=== PATIENT | male | born 1945 | race Caucasian/White ===

== ENCOUNTER 2021-11-21 08:10 | Inpatient (IN) ==
[2021-11-21 08:45] LABS: ABS Lymphocytes 0.4 10^3/ul (1.0-4.8); ABS Monocytes 0.6 10^3/ul (0-0.8); ABS Neutrophils 8.2 10^3/ul (1.5-7.7); Hematocrit 46 % (42-52); Lymphocyte % 4.6 %; Mean Corpuscular HGB Conc 35 g/dL (31-36); Mean Corpuscular Hemoglobin 31 pg (27-31); Mean Corpuscular Volume 90 fL (80-94); Mean Platelet Volume 8.7 fL (7.4-10.4); Platelet Count 207 10^3/uL (150-450); Red Blood Count 5.13 10^6 /uL (4.18-5.48); Red Cell Distribution Width 14 % (10-15); White Blood Count 9.3 10^3/uL (3.5-10.8)
[2021-11-21 08:55] LABS: Activated Partial Thrombo Time 26.6 seconds (26.0-38.0); INR 1.28 (0.86-1.15)
[2021-11-21 09:03] LABS: Albumin 3.8 g/dL (3.2-5.2); Albumin/Globulin Ratio 1.2 (1-3); C Reactive Protein 60.74 mg/L (<8.01); Calcium 8.6 mg/dL (8.6-10.3); Globulin 3.2 g/dL (2-4); Potassium 3.9 mmol/L (3.5-5.0); eGFR CKD-EPI 87.4 (>60)
[2021-11-21 09:04] LABS: Troponin I 0.01 ng/mL (<0.03)
[2021-11-21 10:36] LABS: Urine Appearance Clear; Urine Bilirubin Negative (Negative); Urine Blood 1+ (Negative); Urine Color Amber; Urine Glucose Negative (Negative); Urine Ketones Negative (Negative); Urine Nitrite Negative (Negative); Urine Protein 2+(100 mg/dL) (Negative); Urine Specific Gravity 1.027 (1.002-1.030); Urine Urobilinogen Positive (Negative)
[2021-11-21 10:58] LABS: Urine Bacteria Absent (Absent); Urine Red Blood Cell Trace(0-2/hpf) (Absent); Urine White Blood Cell Trace(0-5/hpf) (Absent)
[2021-11-21] MEDS ORDERED: Azithromycin 500 mg/250 ml NS 500 MG/250 ML BAG IVPB ONE (11:13)
[2021-11-21] MEDS ORDERED: cefTRIAXone 1 gm/50 mL NS BAG 1 GM/50 ML BAG IV ONE (11:13)
[2021-11-21] MEDS ORDERED: Dexamethasone IV 4 MG/ML VIAL 1 ml VIAL IV SLOW PU ONE (11:13)
[2021-11-21] MEDS ORDERED: Albuterol HFA INHALER 8 gm MDI INH PRN (12:59)
[2021-11-21] MEDS: methylPREDNISolone SOD 40 mg/ml 1 ml VIAL IV SCH (13:59)
[2021-11-21] MEDS ORDERED: Remdesivir 100 mg Vial 200 MG in NS 0.9% 250 ml 210 ML IV ONE (14:00)
[2021-11-21] MEDS: Enoxaparin 40 MG/0.4 ML SYR SUBCUT SCH (14:03)
[2021-11-21] MEDS ORDERED: Vancomycin 1,750 MG in NS 0.9% 500 ml BAG 500 ML IVPB ONE (14:30)
[2021-11-21] MEDS ORDERED: Cefepime 2 GM in Dextrose 2 GM/50 ML BAG IV SCH (15:00)
[2021-11-21] MEDS ORDERED: Vancomycin 1,500 MG in NS 0.9% 250 ml 250 ML IVPB SCH (15:00)
[2021-11-21] MEDS ORDERED: guaiFENesin 100 mg/5 ml LIQ unit dose cup PO PRN (15:38)
[2021-11-21 16:57] LABS: INR 1.25 (0.86-1.15)
[2021-11-21] MEDS ORDERED: Vancomycin per Pharmacy 1 EA NOTE FOLLOW UP SCH (17:00)
[2021-11-22] MEDS ORDERED: Vancomycin 1,250 MG in NS 0.9% 250 ml 250 ML IVPB SCH (03:00)
[2021-11-22] MEDS: methylPREDNISolone SOD 40 mg/ml 1 ml VIAL IV SCH ×2 (03:07→10:16)
[2021-11-22] MEDS ORDERED: Cefepime 2 GM in Dextrose 2 GM/50 ML BAG IV SCH (06:00)
[2021-11-22] MEDS ORDERED: Cefepime 2 GM in NS 0.9% 50 ML 50 ML IVPB SCH (06:00)
[2021-11-22 06:59] LABS: ABS Lymphocytes 0.6 10^3/ul (1.0-4.8); ABS Monocytes 0.6 10^3/ul (0-0.8); ABS Neutrophils 10.1 10^3/ul (1.5-7.7); Hematocrit 43 % (42-52); Hemoglobin 14.7 g/dL (14.0-18.0); Lymphocyte % 5.1 %; Mean Corpuscular HGB Conc 34 g/dL (31-36); Mean Corpuscular Hemoglobin 31 pg (27-31); Mean Corpuscular Volume 91 fL (80-94); Mean Platelet Volume 8.8 fL (7.4-10.4); Platelet Count 217 10^3/uL (150-450); Red Blood Count 4.75 10^6 /uL (4.18-5.48); Red Cell Distribution Width 14 % (10-15); White Blood Count 11.3 10^3/uL (3.5-10.8)
[2021-11-22 07:12] LABS: INR 1.2 (0.86-1.15)
[2021-11-22 07:22] LABS: Albumin 3.4 g/dL (3.2-5.2); Albumin/Globulin Ratio 1.2 (1-3); C Reactive Protein 75.01 mg/L (<8.01); Calcium 8.4 mg/dL (8.6-10.3); Globulin 2.9 g/dL (2-4); Potassium 3.9 mmol/L (3.5-5.0); Total Bilirubin 0.8 mg/dL (0.2-1.0); Total Protein 6.3 g/dL (6.4-8.9); eGFR CKD-EPI 94.7 (>60)
[2021-11-22] MEDS: Enoxaparin 40 MG/0.4 ML SYR SUBCUT SCH (10:16)
[2021-11-22] MEDS ORDERED: cefTRIAXone 1 gm/50 mL NS BAG 1 GM/50 ML BAG IVPB SCH (11:00)
[2021-11-22] MEDS: CEFEPIME 2 GM in Dextrose 50 mL IV SCH (18:15)
[2021-11-22] MEDS: Remdesivir 100 mg Vial 100 MG in NS 0.9% 250 ml 230 ML IV SCH (20:22)
[2021-11-23] MEDS: CEFEPIME 2 GM in Dextrose 50 mL IV SCH ×2 (06:16→17:52)
[2021-11-23 08:10] LABS: Albumin 3.2 g/dL (3.2-5.2); Albumin/Globulin Ratio 1.2 (1-3); Calcium 8.1 mg/dL (8.6-10.3); Globulin 2.7 g/dL (2-4); Potassium 3.7 mmol/L (3.5-5.0); Total Bilirubin 0.7 mg/dL (0.2-1.0); Total Protein 5.9 g/dL (6.4-8.9); eGFR CKD-EPI 89.9 (>60)
[2021-11-23] MEDS: Enoxaparin 40 MG/0.4 ML SYR SUBCUT SCH (11:31)
[2021-11-23] MEDS ORDERED: Vancomycin Trough Check NOTE FOLLOW UP ONE (14:30)
[2021-11-23] MEDS ORDERED: Albuterol HFA INHALER 8 gm MDI INH SCH (15:00)
[2021-11-23] MEDS: Albuterol HFA INHALER 8 gm MDI INH SCH ×3 (16:06→23:26)
[2021-11-23] MEDS: methylPREDNISolone SOD 40 mg/ml 1 ml VIAL IV SCH (17:51)
[2021-11-23] MEDS ORDERED: Furosemide 40 mg/4 ml IV VIAL IV ONE (18:34)
[2021-11-23] MEDS: Remdesivir 100 mg Vial 100 MG in NS 0.9% 250 ml 230 ML IV SCH (20:45)
[2021-11-24] MEDS: methylPREDNISolone SOD 40 mg/ml 1 ml VIAL IV SCH ×2 (04:00→18:24)
[2021-11-24] MEDS: Albuterol HFA INHALER 8 gm MDI INH SCH (05:59)
[2021-11-24] MEDS: CEFEPIME 2 GM in Dextrose 50 mL IV SCH ×2 (06:30→18:24)
[2021-11-24 06:44] LABS: Albumin 3.3 g/dL (3.2-5.2); Albumin/Globulin Ratio 1.1 (1-3); Calcium 8.1 mg/dL (8.6-10.3); Globulin 2.9 g/dL (2-4); Potassium 3.9 mmol/L (3.5-5.0); Total Bilirubin 0.7 mg/dL (0.2-1.0); Total Protein 6.2 g/dL (6.4-8.9); eGFR CKD-EPI 93.9 (>60)
[2021-11-24] MEDS: Enoxaparin 40 MG/0.4 ML SYR SUBCUT SCH (12:11)
[2021-11-24] MEDS: Mometasone/Formoter 100/5 MDI INH SCH ×2 (12:16→20:04)
[2021-11-24] MEDS: Remdesivir 100 mg Vial 100 MG in NS 0.9% 250 ml 230 ML IV SCH (20:50)
[2021-11-25] MEDS: methylPREDNISolone 125 mg 2 ML VIAL IV SCH ×2 (05:14→18:34)
[2021-11-25] MEDS: CEFEPIME 2 GM in Dextrose 50 mL IV SCH ×2 (05:15→20:21)
[2021-11-25 07:02] LABS: Albumin 3.2 g/dL (3.2-5.2); Albumin/Globulin Ratio 1.1 (1-3); Globulin 2.8 g/dL (2-4); Potassium 4.2 mmol/L (3.5-5.0); Total Bilirubin 0.6 mg/dL (0.2-1.0); eGFR CKD-EPI 93.9 (>60)
[2021-11-25] MEDS: Mometasone/Formoter 100/5 MDI INH SCH ×2 (08:04→20:11)
[2021-11-25] MEDS: Enoxaparin 40 MG/0.4 ML SYR SUBCUT SCH (15:31)
[2021-11-25] MEDS: Remdesivir 100 mg Vial 100 MG in NS 0.9% 250 ml 230 ML IV SCH (20:22)
[2021-11-26] MEDS: methylPREDNISolone 125 mg 2 ML VIAL IV SCH (06:30)
[2021-11-26] MEDS: CEFEPIME 2 GM in Dextrose 50 mL IV SCH ×2 (06:31→18:32)
[2021-11-26 06:43] LABS: Albumin 3.2 g/dL (3.2-5.2); Albumin/Globulin Ratio 1.2 (1-3); Calcium 7.9 mg/dL (8.6-10.3); Globulin 2.6 g/dL (2-4); Potassium 4.3 mmol/L (3.5-5.0); Total Bilirubin 0.5 mg/dL (0.2-1.0); Total Protein 5.8 g/dL (6.4-8.9); eGFR CKD-EPI 96.9 (>60)
[2021-11-26] MEDS: Mometasone/Formoter 100/5 MDI INH SCH ×2 (07:30→19:32)
[2021-11-26] MEDS: Enoxaparin 40 MG/0.4 ML SYR SUBCUT SCH (12:54)
[2021-11-27] MEDS: CEFEPIME 2 GM in Dextrose 50 mL IV SCH (05:20)
[2021-11-27] MEDS: Mometasone/Formoter 100/5 MDI INH SCH (07:48)
[2021-11-27 09:00] VITALS: BP 103/62
== END 2021-11-27 12:30 | disposition home or self-care (01) | DRG 177 ==
LOC: ED 08:10 → EDHOLD 13:07 → SUATTDRO 13:07 → MED 20:45
PROVIDERS: ADMIT Hospitalist; ATTEND Hospitalist